=== PATIENT | male | born 1965 | race African-American/Black ===

== ENCOUNTER 2019-03-06 11:13 | Inpatient (IN) ==
[2019-03-06] MEDS ORDERED: TYLENOL PO PRN (13:13)
[2019-03-06] MEDS ORDERED: DESYREL PO PRN (13:13)
[2019-03-06] MEDS ORDERED: BENTYL PO PRN (13:13)
[2019-03-06] MEDS ORDERED: D5W 1,000 ML IV PRN (13:13)
[2019-03-06] MEDS ORDERED: DULCOLAX PR PRN (13:13)
[2019-03-06] MEDS ORDERED: ATARAX PO PRN (13:13)
[2019-03-06] MEDS ORDERED: MAALOX PLUS LIQUID PO PRN (13:13)
[2019-03-06] MEDS ORDERED: ROBAXIN PO PRN (13:13)
[2019-03-06] MEDS ORDERED: ZOFRAN IV PRN (13:13)
[2019-03-06] MEDS ORDERED: SENOKOT PO PRN (13:13)
[2019-03-06] MEDS ORDERED: PHENOBARBITAL IV PRN (13:13)
[2019-03-06] MEDS ORDERED: TUBERSOL ID ONE (13:13)
[2019-03-06] MEDS ORDERED: MOTRIN PO PRN (13:13)
[2019-03-06] MEDS ORDERED: NICODERM PATCH TD PRN (13:13)
[2019-03-06] MEDS ORDERED: SALINE LOCK IV FLUID XX ONE (13:13)
[2019-03-06] MEDS ORDERED: SEROQUEL PO PRN (13:13)
[2019-03-06] MEDS ORDERED: ZOFRAN ODT PO PRN (13:13)
[2019-03-06] MEDS ORDERED: IMODIUM PO PRN (13:13)
[2019-03-06 14:00] LABS: HEMATOCRIT 37.1 % (42.0-52.0); HEMOGLOBIN 12.7 g/dL (14.0-18.0); MCH 31.6 PG (27-31); MCHC 34.2 g/dL (33-37); MCV 92.3 FL (81-99); MPV 10.1 FL (7.4-10.4); RBC 4.02 XMIL (4.7-6.1); RDW 16.9 % (11.5-14.5); WBC 4.65 X1000 (4.8-10.8)
[2019-03-06 14:34] LABS: INR 0.9; PROTIME 12.6 Seconds (11.0-16.0)
[2019-03-06 14:40] LABS: AMYLASE 115 U/L (20-200); LIPASE 46 U/L (13-60)
[2019-03-06 14:42] LABS: AGAP 11; CHLORIDE 103 mmol/L (98-107); SODIUM 139 mmol/L (136-145); TCO2 25 mmol/L (25-35)
[2019-03-06 14:43] LABS: ALBUMIN 4.5 g/dL (3.5-5.0); ALKALINE PHOSPHATASE 61 U/L (32-122); BUN 8 mg/dL (8-22); CALCIUM 8.8 mg/dL (8.8-10.2); COSMO 276; CREATININE 0.7 mg/dL (0.7-1.2); ESTIMATED GFR > 60; GLUCOSE 96 mg/dL (70-104); GOT 34 U/L (10-34); GPT 26 U/L (10-44); TOTAL PROTEIN 7.8 g/dL (6.3-8.3)
[2019-03-06] MEDS: LIBRIUM PO SCH ×2 (14:50→20:58)
[2019-03-06] MEDS ORDERED: M.V.I.-12 10 ML, FOLIC ACID 1 MG, MAGNESIUM SULFATE 1 GM, THIAMINE 100 MG in NS 1,000 ML IV ONE (15:00)
--- NOTE | 2019-03-06 15:38 | Diag Imaging Result Doc PS360 ---
EXAM: CHEST-1 VIEW HISTORY: TB check TECHNIQUE: Chest single view COMPARISON: None. FINDINGS: The lungs are well expanded. The heart is not enlarged. The vessels are not distended. There are no infiltrates. No effusion identified. No nodules. No granuloma. IMPRESSION: Negative exam. Electronically signed by Jose Maria Campbell 03/06/2019 3:35 PM
[2019-03-06 15:41] LABS: URINE SOURCE VOIDED
[2019-03-06 15:53] LABS: CLARITY CLEAR (CLEAR); COLOR YELLOW
[2019-03-06 15:54] LABS: BILIRUBIN URINE NEGATIVE (NEGATIVE); BLOOD URINE NEGATIVE (NEGATIVE); GLUCOSE URINE NEGATIVE (NEGATIVE); KETONE URINE NEGATIVE (NEGATIVE); LEUKOCYTES URINE NEGATIVE (NEGATIVE); NITRITE URINE NEGATIVE (NEGATIVE); PROTEIN URINE NEGATIVE (NEGATIVE); UROBILINOGEN URINE NORMAL
[2019-03-06 16:11] LABS: UR AMPHETAMINES QUAL NONE DETECTED (NONE DETECT); UR BARBITUATES QUAL PRESUMPTIVE POSITIVE (NONE DETECT); UR BENZODIAZEPIN QUAL PRESUMPTIVE POSITIVE (NONE DETECT); UR CANNABINOIDS QUAL NONE DETECTED (NONE DETECT); UR COCAINE QUAL PRESUMPTIVE POSITIVE (NONE DETECT); UR METHADONE QUAL NONE DETECTED (NONE DETECT); UR METHAMPHETAMINE QUAL NONE DETECTED (NONE DETECT); UR OPIATES QUAL NONE DETECTED (NONE DETECT); UR OXYCODONE QUAL NONE DETECTED (NONE DETECT); UR PCP QUAL NONE DETECTED (NONE DETECT); UR PROPOXYPHENE QUAL NONE DETECTED (NONE DETECT); UR TCA QUAL NONE DETECTED (NONE DETECT)
--- NOTE | 2019-03-07 01:20 | HISTORY AND PHYSICAL ---
CHIEF COMPLAINT: Nausea, vomiting. HISTORY OF PRESENT ILLNESS: The patient is a 53-year-old male who notes he has been drinking heavily as well as taking other substances. He states he needs to stop drinking, he is tired of it, and notes that it is destroying his life. Notes he is having some sweating episodes, paresthesias. Denies any fevers or chills. PAST MEDICAL HISTORY: The patient has a past medical history of TB in 1991 that was treated. Has chronic anxiety, depression. ALLERGIES: No known drug allergies. MEDICATIONS: 1. Pen-VK 3 times daily. 2. Carbamazepine 200 mg three times daily. FAMILY HISTORY: Noncontributory. REVIEW OF SYSTEMS: Patient CIWA score is 23 secondary to being moderately fidgety, restless, nervous, anxious, unable to sit still, has difficulty concentrating and follow commands or answering questions. Denies any fevers or chills. He has some nausea, vomiting. He has abdominal pain, paresthesias. Notes that he has very minimal tremors currently, but these typically worsen the longer he stays without alcohol. He is having a headache. Denies any dysuria, frequency, urgency, hesitancy, constipation, melena, hematochezia. SUBSTANCE ABUSE HISTORY: The patient was in a treatment facility in February at [facility], only stayed 1 day. Started drinking at age 14, currently drinks up to 12 beers a day. Started cocaine at 24, currently continues to use 2 to 3 times a week. Started nicotine at age 15, currently smokes half to 1 pack a day. FAMILY HISTORY: Noncontributory. PHYSICAL EXAMINATION: VITAL SIGNS: Reviewed and stable. He is awake, alert. He is in no current respiratory distress. HEENT: Normocephalic. NECK: Supple. CARDIOVASCULAR: Regular rate. CHEST: Clear, nonlabored. ABDOMEN: Soft, nondistended. EXTREMITIES: Moves all extremities. NEUROLOGIC: No focal changes. SKIN: Warm, dry. No rashes. ASSESSMENT: 1. Nausea, vomiting. 2. Abdominal pain. 3. Myalgias. 4. Paresthesias. 5. Paroxysmal sweating. 6. Alcohol abuse, withdrawal and stabilization. 7. Cocaine abuse, withdrawal and stabilization. 8. Chronic tobacco abuse. PLAN: We will admit patient to hospital. High-dose Librium taper. Continue to follow. Continue counseling. Symptomatic medications as needed. cc: Bora Gold MD
[2019-03-07] MEDS: LIBRIUM PO SCH ×4 (02:12→22:39)
[2019-03-07] MEDS: PROTONIX PO SCH (06:31)
[2019-03-07] MEDS: VITAMIN B-1 PO SCH (10:34)
[2019-03-07] MEDS: THERA M PLUS PO SCH (10:34)
[2019-03-07] MEDS: FOLIC ACID PO SCH (10:34)
[2019-03-07] MEDS ORDERED: LIBRIUM PO SCH ×2 (16:00)
[2019-03-08] MEDS: LIBRIUM PO SCH (04:18)
[2019-03-08] MEDS: PROTONIX PO SCH (06:37)
[2019-03-08 07:28] VITALS: BP 108/76
[2019-03-08] MEDS ORDERED: LIBRIUM PO SCH (09:00)
[2019-03-08] MEDS: FOLIC ACID PO SCH (10:41)
[2019-03-08] MEDS: VITAMIN B-1 PO SCH (10:42)
[2019-03-08] MEDS: THERA M PLUS PO SCH (10:42)
== END 2019-03-08 11:16 | disposition home or self-care (01) | DRG 897 ==
LOC: P.DIRADM 11:37 → P.MEDSURG 12:00
PROVIDERS: ADMIT Family Medicine; ATTEND Family Medicine
CPT/HCPCS: 71010; 71045; 80053; 80104; 80301; 80305; 80307; 80320; 82055; 82150; 82948; 83690; 85027; 85610; A9270; G0431; G0434; G0477; G0480; G6040; J3411; J3475; J7030; XXXXX